=== PATIENT | female | born 2000 | race African-American/Black ===

== ENCOUNTER 2020-06-17 15:50 | Emergency (ER) | payer MEDICAID, OTHER ==
[~2020-06-17] VITALS: Ht 152.4 cm; Wt 57.2 kg
[2020-06-17 16:49] LABS: Urine Bacteria FEW /hpf (None Seen); Urine Blood Negative /uL (Negative); Urine Mucus FEW (None Seen); Urine Specific Gravity 1.019 (1.001-1.035); Urine WBC 7 /hpf (0 - 5)
[2020-06-17 19:23] LABS: Basophils # (auto) 0 10 ^3/uL (0-0.2); Basophils % (auto) 0.3 % (0.0-2.0); Eosinophils # (auto) 0.2 10 ^3/uL (0-0.8); Eosinophils % (auto) 2.4 % (0.0-7.0); Hematocrit 44.1 % (36.0-46.0); Hemoglobin 14.9 g/dL (12.2-16.2); Lymphocytes % (auto) 34.9 % (10.0-50.0); Mean Corpuscular Hemoglobin 30.6 pg (28.0-32.0); Mean Corpuscular Hgb Conc. 33.8 g/dL (32.0-36.0); Mean Corpuscular Volume 90.6 fL (80.0-100.0); Monocytes # (auto) 0.6 10 ^3/uL (0-1.3); Monocytes % (auto) 6.6 % (0.0-12.0); Neutrophils # (auto) 4.7 10 ^3/uL (1.6-8.6); Neutrophils % (auto) 55.8 % (37.0-80.0); Nucleated Red Blood Cells % 0.2 %; Platelet Count (auto) 362 10^3/uL (140-450); Red Blood Cells 4.86 10^6/uL (4.0-5.20); Red Cell Distribution Width 13.4 % (11.8-14.3); White Blood Cell 8.5 10^3/uL (4.4-10.8)
[2020-06-17 19:35] LABS: Albumin 4.2 g/dL (3.4-5.0); Calcium 9.4 mg/dL (8.5-10.1); Potassium 3.4 mmol/L (3.5-5.1)
[2020-06-17 19:37] LABS: Bilirubin, Total 0.4 mg/dL (0.2-1.0); Total Protein 8.2 g/dL (6.4-8.2)
[2020-06-17 22:44] VITALS: BP 124/81
== END 2020-06-17 22:05 | disposition home or self-care (01) ==
LOC: ER 15:50
DX: O26.891 Other specified pregnancy related conditions, first trimester (principal); R10.30 Lower abdominal pain, unspecified; Z3A.01 Less than 8 weeks gestation of pregnancy
CPT/HCPCS: 36415; 76801; 76817; 80053; 81001; 81025; 84702; 85025

== ENCOUNTER 2020-07-01 13:11 | Emergency (ER) | payer MEDICAID ==
[~2020-07-01] VITALS: Ht 152.4 cm; Wt 55.8 kg
[2020-07-01 14:46] LABS: Urine Bacteria FEW /hpf (None Seen); Urine Blood 1+ /uL (Negative); Urine Specific Gravity 1.012 (1.001-1.035); Urine WBC 3 /hpf (0 - 5)
[2020-07-01 16:02] VITALS: BP 115/78
== END 2020-07-01 16:03 | disposition home or self-care (01) ==
LOC: ER 13:11
DX: O03.9 Complete or unspecified spontaneous abortion without complication (principal); Z3A.01 Less than 8 weeks gestation of pregnancy
CPT/HCPCS: 36415; 81001; 84702

== ENCOUNTER 2022-06-05 13:11 | Emergency (ER) | payer MEDICAID ==
[~2022-06-05] VITALS: Ht 152.4 cm; Wt 55.0 kg
[2022-06-05 15:23] VITALS: BP 110/68
[2022-06-05] MEDS ORDERED: IBUP600T27 PO (15:26)
[2022-06-05] MEDS ORDERED: METH500T22 PO (15:26)
== END 2022-06-05 15:30 | disposition home or self-care (01) ==
LOC: ER 13:11
DX: S39.012A Strain of muscle, fascia and tendon of lower back, initial encounter (principal); F17.210 Nicotine dependence, cigarettes, uncomplicated; Z88.0 Allergy status to penicillin; X50.1XXA Overexertion from prolonged static or awkward postures, initial encounter; Y93.89 Activity, other specified; Y92.89 Other specified places as the place of occurrence of the external cause; Y99.8 Other external cause status

== ENCOUNTER 2022-07-13 19:36 | Emergency (ER) | payer MEDICAID ==
[~2022-07-13] VITALS: Ht 152.4 cm; Wt 54.0 kg
[~2022-07-13 19:36] MED LIST: IBUP600T27 PO; METH500T22 PO
[2022-07-13 21:48] LABS: Urine Bacteria NONE SEEN /hpf (None Seen); Urine Blood Negative /uL (Negative); Urine Mucus FEW (None Seen); Urine Specific Gravity 1.019 (1.001-1.035); Urine WBC 5 /hpf (0 - 5)
[2022-07-13 21:54] LABS: Basophils # (auto) 0 10 ^3/uL (0-0.2); Basophils % (auto) 0.6 % (0.0-2.0); Eosinophils # (auto) 0.5 10 ^3/uL (0-0.8); Eosinophils % (auto) 6.7 % (0.0-7.0); Hematocrit 47.2 % (36.0-46.0); Hemoglobin 15.6 g/dL (12.2-16.2); Lymphocytes # (auto) 2.2 10 ^3/uL (0.4-5.4); Lymphocytes % (auto) 32.4 % (10.0-50.0); Mean Corpuscular Hemoglobin 30.6 pg (28.0-32.0); Mean Corpuscular Volume 92.7 fL (80.0-100.0); Monocytes # (auto) 0.6 10 ^3/uL (0-1.3); Monocytes % (auto) 8.2 % (0.0-12.0); Neutrophils # (auto) 3.5 10 ^3/uL (1.6-8.6); Neutrophils % (auto) 52.1 % (37.0-80.0); Nucleated Red Blood Cells % 0.1 %; Red Blood Cells 5.09 10^6/uL (4.0-5.20); Red Cell Distribution Width 13.7 % (11.8-14.3); White Blood Cell 6.8 10^3/uL (4.4-10.8)
[2022-07-13 22:06] LABS: Potassium 3.9 mmol/L (3.5-5.1)
[2022-07-13 22:12] LABS: BUN/Creatinine Ratio 10.8; Bilirubin, Total 0.4 mg/dL (0.2-1.0); Total Protein 7.6 g/dL (6.4-8.2)
[2022-07-14] MEDS ORDERED: CEPH-322 PO (03:55)
[2022-07-14] MEDS ORDERED: HYDROcodone-ACET 5/325MG TAB PO ONE (04:00)
[2022-07-14] MEDS ORDERED: cefTRIAXone W LIDOCAINE 1 GM IM IM ONE (04:00)
[2022-07-14] MEDS ORDERED: ONDANSETRON ODT 4 MG TAB PO ONE (04:00)
[2022-07-14] MEDS ORDERED: cefTRIAXone SOD 1,000 MG VL ONE (05:04)
[2022-07-14 05:05] VITALS: BP 132/72
[2022-07-14] MEDS ORDERED: LIDOCAINE 1%HCL (LOCAL ANESTH) 10 ML MDV ONE (05:13)
== END 2022-07-14 05:24 | disposition home or self-care (01) ==
LOC: ER 19:38
DX: N39.0 Urinary tract infection, site not specified (principal); F17.210 Nicotine dependence, cigarettes, uncomplicated; F12.10 Cannabis abuse, uncomplicated; Z32.02 Encounter for pregnancy test, result negative; Z88.0 Allergy status to penicillin
CPT/HCPCS: 36415; 80053; 81001; 81025; 83690; 85025; 96372; 99283; J0696; J2001; Q0162

== ENCOUNTER 2023-07-07 12:13 | Emergency (ER) | payer SELFPAY ==
[~2023-07-07] VITALS: Ht 152.4 cm; Wt 44.4 kg
[~2023-07-07 12:13] MED LIST changes: +CEPH250C PO; +IBUP-1454 PO; -IBUP600T27 PO; +METH-1181 PO; -METH500T22 PO
[2023-07-07 12:37] VITALS: BP 109/70; PULSE 90; RESP 18; O2SAT 96
== END 2023-07-07 15:28 | disposition home or self-care (01) ==
LOC: ER 12:13
DX: G44.209 Tension-type headache, unspecified, not intractable (principal)
CPT/HCPCS: 70450

== ENCOUNTER 2024-12-06 07:41 | Emergency (ER) | payer MEDICAID ==
[~2024-12-06] VITALS: Ht 152.4 cm; Wt 44.7 kg
[2024-12-06 08:09] VITALS: BP 106/76; PULSE 92; RESP 16; TEMP 98.3; O2SAT 97
--- NOTE | 2024-12-06 08:21 | ED.PDOC ---
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 24 year old with hx of irregular menses presents for menses concern Started menses yesterday Noted large clots, and heavy flow Went through 5 pads yesterday Today she is on 2nd pad Associated with ab cramping LMP 10/30/2024 Chief Complaint: Vaginal Bleed Time Seen by MD: 07:47 Reviewed Notes: Nurses Notes, Medications, Allergies Allergies: Coded Allergies: Penicillins (Verified Allergy, Unknown, 07/01/20) Uncoded Allergies: CILLINS (Allergy, Unknown, 06/17/20) Home Meds Active Scripts Cephalexin (KEFLEX CAPSULE) 250 Mg Cp, 1 CAP PO QID for 5 Days, #20 CAP Prov:IVANA ARCOS DO 07/14/22 Methocarbamol (Methocarbamol) 500 Mg Tab, 500 MG PO QHSP PRN, #20 TAB Prov:GILDA CHOI 06/05/22 Ibuprofen (Ibuprofen) 600 Mg Tab, 600 MG PO TID, #30 TAB Prov:GILDA CHOI 06/05/22 Information Source: Patient Past Medical History PAST MEDICAL HISTORY: Denies Surgical History: Denies all surgeries VALIDATION MANAGER History: No Pertinent VALIDATION MANAGER History Family History Family History: Reviewed,noncontributory to illness Social History Smoker: Cigarettes Alcohol: Occasionally Drugs: Marijuana Lives In: Home All Other Systems: Reviewed and Negative (per hpi) Physical Exam General Appearance: No Apparent Distress, Normal HEENT: Normal ENT Inspection, Pharynx Normal, TMs Normal Neck: Full Range of Motion, Non-Tender, Normal, Normal Inspection Respiratory: Chest Non-Tender, Lungs Clear, No Accessory Muscle Use, No Respiratory Distress, Normal Breath Sounds Cardiovascular: No Murmur, No Gallop, Regular Rate/Rhythm Breast Exam: Deferred Gastrointestinal: No Organomegaly, Non Tender, No Pulsatile Mass, Normal Bowel Sounds, Soft Genitalia: Deferred Pelvic: Deferred (Declined) Rectal: Deferred Extremities: Normal capillary refill, Normal inspection, Normal range of motion, Non-tender, No pedal edema Musculoskeletal : Apperance: Normal Neurologic: Alert, No Motor Deficits, Normal Affect, Normal Mood, No Sensory Deficits Cerebellar Function: Normal Reflexes: Normal Skin: Dry, Normal Color, Warm Lymphatic: No Adenopathy Was a procedure done? Was a procedure done?: No Differential Diagnosis (VALIDATION MANAGER) Vaginal Bleeding: Ectopic , Menstrual Bleeding, UTI, Vaginitis X-Ray, Labs, Meds, VS Vital Signs Date Time Temp Pulse Resp B/P (MAP) Pulse Ox O2 Delivery O2 Flow Rate FiO2 12/06/24 08:09 92 16 97 Room Air 12/06/24 08:09 98.3 92 16 106/76 (86) 97 98.3 12/06/24 07:46 98.3 92 16 106/76 (86) 97 98.3 Lab Test 12/06/24 08:28 12/06/24 08:20 Range/Units White Blood Count 5.5 4.4-10.8 10^3/uL Red Blood Count 4.91 4.0-5.20 10^6/uL Hemoglobin 15.9 12.2-16.2 g/dL Hematocrit 46.3 H 36.0-46.0 % Mean Corpuscular Volume 94.2 80.0-100.0 fL Mean Corpuscular Hemoglobin 32.4 H 28.0-32.0 pg Mean Corpuscular Hemoglobin Concent 34.4 32.0-36.0 g/dL Red Cell Distribution Width 13.4 11.8-14.3 % Platelet Count 288 140-450 10^3/uL Mean Platelet Volume 6.3 L 6.9-10.8 fL Neutrophils (%) (Auto) 60.5 37.0-80.0 % Lymphocytes (%) (Auto) 23.9 10.0-50.0 % Monocytes (%) (Auto) 7.7 0.0-12.0 % Eosinophils (%) (Auto) 7.1 H 0.0-7.0 % Basophils (%) (Auto) 0.8 0.0-2.0 % Neutrophils # (Auto) 3.3 1.6-8.6 10 ^3/uL Lymphocytes # (Auto) 1.3 0.4-5.4 10 ^3/uL Monocytes # (Auto) 0.4 0-1.3 10 ^3/uL Eosinophils # (Auto) 0.4 0-0.8 10 ^3/uL Basophils # (Auto) 0 0-0.2 10 ^3/uL Nucleated Red Blood Cells 0.0 % Sodium Level 140 136-145 mmol/L Potassium Level 4.0 3.5-5.1 mmol/L Chloride Level 113 H 98-107 mmol/L Carbon Dioxide Level 20 20-31 mmol/L Anion Gap 7 5-15 Blood Urea Nitrogen 6 L 9-23 mg/dL Creatinine 0.72 0.550-1.02 mg/dL Glomerular Filtration Rate Calc 119 >90 mL/min BUN/Creatinine Ratio 8.3 L 10.0-20.0 Serum Glucose 83 74-106 mg/dL Calcium Level 9.8 8.7-10.4 mg/dL Urine Color Light-brown Yellow Urine Clarity Turbid H Clear Urine pH 7.5 5.0-9.0 Urine Specific [place] 1.015 1.001-1.035 Urine Protein 1+ H Negative Urine Ketones Negative Negative Urine Blood 3+ H Negative /uL Urine Nitrite Negative Negative Urine Bilirubin Negative Negative Urine Urobilinogen Normal Negative mg/dL Urine Leukocyte Esterase 2+ Negative /uL Urine RBC 3 0 - 4 /hpf Urine Microscopic WBC 18 H 0-5 /HPF Urine Squamous Epithelial Cells Mod <5 /hpf Urine Bacteria None seen None Seen /hpf Urine Glucose Normal Normal mg/dL Urine Test Negative Negative Chlamydia trachomatis (MICHELLE) Pending Neisseria gonorrhoeae (MICHELLE) Pending X-Ray, Labs, Meds, VS Comment Suggested a pelvic exam and pelvic ultrasound however patient declines at this time patient, patient has been follow up with the PCP as outpatient. History and lab findings consistent with UTI Vital signs stable patient stable Patient tolerating p.o. fluids Encouraged parents to increase water intake Practice good personal hygiene. Always wipe from front to back Drink plenty of fluids to help flush bacteria out of the urinary tract Empty bladder completely as soon as you feel the urge Empty bladder after intercourse Prescribed p.o. antibiotics for presentation of symptoms Complete course of antibiotic therapy even if symptoms improve or resolve. There should be no leftover antibiotics as this can lead to antibiotic resistant bacteria and even worse infection. Parents verbalized understanding. Potential side effects discussed with patient including abdominal pain, nausea, diarrhea. Recommended probiotics and return precautions given Persistent diarrhea Dehydration Blood in stool Ill-appearing Patient is stable for discharge at this time. External notes reviewed. Test results and diagnostic imaging interpreted. All diagnostic findings, discharge care, education and instructions provided Follow-up with PCP in 2 to 3 days Patient verbalized understanding and agreed to treatment plan Vital signs stable, afebrile, no acute distress noted Patient ambulatory with strong steady gait Advised to return precautions for any new or worsening symptoms, return to ER immediately for re-evaluation Patient is aware that the purpose of this visit was for an acute medical emergency requiring emergent stabilization. Chronic conditions, including malignancies have not been ruled out. Patient is instructed to follow up with PCP as directed and discharge instructions for continued care and workup. If unable to arrange follow-up, patient is to return to the emergency department for reassessment. Patient (parent or legal guardian if applicable) was given verbal and written discharge instructions and acknowledges understanding. Time of 1ST Reevaluation: 08:19 Reevaluation 1ST: Improved Time of 2ND Reevaluation: 09:55 Reevaluation 2ND: Improved Patient Education/Counseling: Diagnosis, Treatment Family Education/Counseling: Diagnosis, Treatment Departure 1 Departure Time of Disposition: 09:57 Impression: Primary Impression: UTI (urinary tract infection) Qualified Codes: N30.01 - Acute cystitis with hematuria Additional Impression: Dysmenorrhea Disposition: HOME / SELF CARE / HOMELESS Condition: Stable e-Prescriptions Dicyclomine Hcl (BENTYL CAPSULE) 10 Mg Cp 1 CAP PO TIDPRN PRN for 7 Days, #21 CAP 0 Refills Prov: PHIL WOODWARD NP 12/06/24 Ibuprofen Micronized (Ibuprofen) 600 Mg Tab 600 MG PO TID for 10 Days, #30 TAB 0 Refills Prov: PHIL WOODWARD NP 12/06/24 Nitrofurantoin Monohydrate Mac (Macrobid) 100 Mg Cap 100 MG PO BID for 7 Days, #14 CAP 0 Refills Prov: PHIL WOODWARD NP 12/06/24 Critical Care Note Critical Care Time?: No Stability Stability form required: No Heart Score Heart Score: Heart Score Response (Comments) Value History N/A 0 EKG N/A 0 Age N/A 0 Risk Factors N/A 0 Troponin N/A 0 Total 0 PHIL WOODWARD NP Dec 06, 2024 08:20
[2024-12-06 08:29] LABS: Urine Bacteria None Seen /hpf (None Seen)
[2024-12-06 08:50] LABS: Basophils # (auto) 0 10 ^3/uL (0-0.2); Basophils % (auto) 0.8 % (0.0-2.0); Eosinophils # (auto) 0.4 10 ^3/uL (0-0.8); Eosinophils % (auto) 7.1 % (0.0-7.0); Hematocrit 46.3 % (36.0-46.0); Hemoglobin 15.9 g/dL (12.2-16.2); Lymphocytes # (auto) 1.3 10 ^3/uL (0.4-5.4); Lymphocytes % (auto) 23.9 % (10.0-50.0); Mean Corpuscular Hemoglobin 32.4 pg (28.0-32.0); Mean Corpuscular Hgb Conc. 34.4 g/dL (32.0-36.0); Mean Corpuscular Volume 94.2 fL (80.0-100.0); Monocytes # (auto) 0.4 10 ^3/uL (0-1.3); Monocytes % (auto) 7.7 % (0.0-12.0); Neutrophils # (auto) 3.3 10 ^3/uL (1.6-8.6); Neutrophils % (auto) 60.5 % (37.0-80.0); Platelet Count (auto) 288 10^3/uL (140-450); Red Blood Cells 4.91 10^6/uL (4.0-5.20); Red Cell Distribution Width 13.4 % (11.8-14.3); White Blood Cell 5.5 10^3/uL (4.4-10.8)
[2024-12-06 08:53] LABS: Urine Blood 3+ /uL (Negative); Urine Clarity Turbid (Clear); Urine Color Light-Brown (Yellow); Urine Protein, UAD 1+ (Negative); Urine Specific Gravity 1.015 (1.001-1.035); Urine Squamous Epithelial Cell MOD /hpf (<5); Urine Urobilinogen Normal (Negative); Urine WBC 18 /HPF (0-5); Urine pH 7.5 (5.0-9.0)
[2024-12-06 09:08] LABS: Sodium 140 mmol/L (136-145)
[2024-12-06 09:09] LABS: Anion Gap 7 (5-15); Carbon Dioxide 20 mmol/L (20-31)
[2024-12-06 09:10] LABS: Calcium 9.8 mg/dL (8.7-10.4)
[2024-12-06 09:11] LABS: Chloride 113 mmol/L (98-107)
[2024-12-06 09:14] LABS: BUN/Creatinine Ratio 8.3 (10.0-20.0); Glucose 83 mg/dL (74-106)
[2024-12-06 09:15] LABS: Blood Urea Nitrogen 6 mg/dL (9-23)
[2024-12-06] MEDS ORDERED: IBUP1TAB5 PO (10:01)
[2024-12-06] MEDS ORDERED: DICY10CA PO (10:01)
[2024-12-06] MEDS ORDERED: NITR-87 PO (10:01)
[2024-12-07 23:06] LABS: Chlamydia Trachomatis, NAA Negative (Negative); Neisseria gonorrhoeae, NAA Negative (Negative)
== END 2024-12-06 10:05 | disposition home or self-care (01) ==
LOC: ER 07:41
DX: N39.0 Urinary tract infection, site not specified (principal); N94.6 Dysmenorrhea, unspecified; F12.90 Cannabis use, unspecified, uncomplicated; F17.210 Nicotine dependence, cigarettes, uncomplicated; Z88.0 Allergy status to penicillin; Z79.1 Long term (current) use of non-steroidal anti-inflammatories (NSAID)
CPT/HCPCS: 36415; 80048; 81001; 81025; 85025

== ENCOUNTER 2025-07-28 12:16 | Emergency (ER) | payer MEDICAID ==
[~2025-07-28] VITALS: Ht 154.9 cm; Wt 46.3 kg
[~2025-07-28 12:16] MED LIST changes: +DICY10CA PO; +IBUP1TAB5 PO; +NITR-87 PO
--- NOTE | 2025-07-28 14:31 | DVH ---
US OB ULTRASOUND COMP LESS 14WKS Indication: PELVIC PRESSURE Comparison: None TECHNIQUE: Multiple real-time grayscale sonographic images of the pelvis with duplex Doppler color flow, spectral and M-mode analysis. Findings: Transabdominal and transvaginal imaging was performed. The uterus measures 6.9 cm. Possible gestational sac is seen within the uterus measuring 0.4 cm. No 4 or yolk sac is visualized. 2.1 cm complex right ovarian cyst. Unremarkable left ovary. Small volume free pelvic fluid. IMPRESSION: Questionable early intrauterine gestational sac versus pseudo-gestational sac. No pole or yolk sac is visualized. Recommend serial beta-hCG and sonographic follow-up. Complex right ovarian cyst measuring 2.1 cm. This could be hemorrhagic cyst.
--- NOTE | 2025-07-28 14:52 | ED.PDOC ---
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 Patient reports pulling a bag down at work when she got hit in the abdomen. She has had pain since. Patient reports she is , LMP on 06/04/25. Patient has no further complaints at this time. Patient denies any vaginal bleeding, fever, chills, or N/V/D. Chief Complaint: Time Seen by MD: 14:50 Reviewed Notes: Medications, Allergies Allergies: Coded Allergies: Penicillins (Verified Allergy, Unknown, 07/01/20) Uncoded Allergies: CILLINS (Allergy, Unknown, 06/17/20) Home Meds Active Scripts Dicyclomine Hcl (BENTYL CAPSULE) 10 Mg Cp, 1 CAP PO TIDPRN PRN for 7 Days, #21 CAP 0 Refills Prov:PHIL WOODWARD ORTHOTICS PROSTHETICS ASSISTANT 12/06/24 Ibuprofen Micronized (Ibuprofen) 600 Mg Tab, 600 MG PO TID for 10 Days, #30 TAB 0 Refills Prov:PHIL WOODWARD ORTHOTICS PROSTHETICS ASSISTANT 12/06/24 Nitrofurantoin Monohydrate Mac (Macrobid) 100 Mg Cap, 100 MG PO BID for 7 Days, #14 CAP 0 Refills Prov:PHIL WOODWARD ORTHOTICS PROSTHETICS ASSISTANT 12/06/24 Cephalexin (KEFLEX CAPSULE) 250 Mg Cp, 1 CAP PO QID for 5 Days, #20 CAP Prov:IVANA ARCOS DO 07/14/22 Methocarbamol (Methocarbamol) 500 Mg Tab, 500 MG PO QHSP PRN, #20 TAB Prov:GILDA CHOI 06/05/22 Ibuprofen (Ibuprofen) 600 Mg Tab, 600 MG PO TID, #30 TAB Prov:GILDA CHOI 06/05/22 Information Source: Patient Mode of Arrival: Ambulatory Timing: Hours Severity: Moderate Onset Of Mass/Bleeding: Following Trauma Sexual Activity: Associated Signs and Symptoms: Abdominal Pain Past Medical History PAST MEDICAL HISTORY: Denies Surgical History: Denies all surgeries PLUG SORTER History: No Pertinent PLUG SORTER History Family History Family History: Reviewed,noncontributory to illness Social History Smoker: Cigarettes Alcohol: Occasionally Drugs: Marijuana Lives In: Home Constitutional: denies: chills, diaphoresis, fatigue, fever, malaise, sweats, weakness, others EENTM: denies: blurred vision, double vision, ear bleeding, ear discharge, ear drainage, ear pain, ear ringing, eye pain, eye redness, hearing loss, mouth pain, mouth swelling, nasal discharge, nose bleeding, nose congestion, nose pain, photophobia, tearing, throat pain, throat swelling, voice changes, others Respiratory: denies: cough, hemoptysis, orthopnea, SOB at rest, shortness of breath, SOB with excertion, stridor, wheezing, others Cardiovascular: denies: chest pain, dizzy spells, diaphoresis, Dyspnea on exertion, edema, irregular heart beat, left arm pain, lightheadedness, palpitations, PND, syncope, others Gastrointestinal: denies: abdomen distended, abdominal pain, blood streaked bowels, constipated, diarrhea, dysphagia, difficulty swallowing, hematemesis, melena, nausea, poor appetite, poor fluid intake, rectal bleeding, rectal pain, vomiting, others Genitourinary: reports: , others (pelvoic pressure ); denies: abnormal vagina bleeding, burning, dyspareunia, dysuria, flank pain, frequency, hematuria, incontinence, pain, vagina discharge, urgency Neurological: denies: dizziness, fainting, headache, left sided numbness, left sided weakness, numbness, paresthesia, pre-existing deficit, right sided numbness, right sided weakness, seizure, speech problems, tingling, tremors, weakness, others Musculoskeletal: denies: back pain, gout, joint pain, joint swelling, muscle pain, muscle stiffness, neck pain, others Integumetry: denies: bruises, change in color, change in hair/nails, dryness, laceration, lesions, lumps, rash, wounds, others Allergic/Immunocompromised: denies: Difficulty Healing, Frequent Infections, Hives, Itching, others Hematologic/Lymphatic: denies: anemia, blood clots, easy bleeding, easy bruising, swollen glands, others Endocrine: denies: excessive hunger, excessive sweating, excessive thirst, excessive urination, flushing, intolerance to cold, intolerance to heat, unexplained weight gain, unexplained weight loss, others Psychiatric: denies: anxiety, bipolar disorder, depression, hopeless, panic disorder, schizophrenia, sleepless, suicidal, others All Other Systems: Reviewed and Negative Physical Exam General Appearance: Moderate Distress HEENT: Normal ENT Inspection, Pharynx Normal, TMs Normal Neck: Full Range of Motion, Non-Tender, Normal, Normal Inspection Respiratory: Chest Non-Tender, Lungs Clear, No Accessory Muscle Use, No Respiratory Distress, Normal Breath Sounds Cardiovascular: No Edema, No JVD, No Murmur, No Gallop, Normal Peripheral Pulses, Regular Rate/Rhythm Breast Exam: Deferred Gastrointestinal: No Organomegaly, Non Tender, No Pulsatile Mass, Normal Bowel Sounds, Soft Genitalia: Deferred Pelvic: Deferred Rectal: Deferred Extremities: No calf tenderness, Normal capillary refill, Normal inspection, Normal range of motion, Non-tender, No pedal edema Musculoskeletal : Apperance: Normal Neurologic: Alert, master barber II-XII nml as Tested, No Motor Deficits, Normal Affect, Normal Mood, No Sensory Deficits Cerebellar Function: Normal Reflexes: Normal Skin: Dry, Normal Color, Warm Peripheral Pulses: 3+ Radial (R), 3+ Radial (L) Lymphatic: No Adenopathy Was a procedure done? Was a procedure done?: No Differential Diagnosis (PLUG SORTER) Vaginal Bleeding: - Complete, - Incomplete, - Inevitable, - Missed, - Threatened, UTI, Vaginitis Vaginal Discharge: X-Ray, Labs, Meds, VS Vital Signs Date Time Temp Pulse Resp B/P (MAP) Pulse Ox O2 Delivery O2 Flow Rate FiO2 07/28/25 12:17 98.6 109 18 116/75 98 98.6 Lab Test 07/28/25 12:31 Range/Units Beta HCG, Quantitative 4642.0 H 1.5-4.2 mIU/mL [place] [id number] Ph: [phone] DIAGNOSTIC IMAGING Diagnostic Imaging Report : [id number] Signed PATIENT: SARAH LAM ACCT: [id number] UNIT: [id number] : 2000 LOC: ER ROOM / BED: / AGE / SEX: 25 / F ADM STATUS: REG ER SERVICE 1220 ORDERING PHYSICIAN: COSME GONZALEZ MD PROCEDURE(s): OB4US - OB ULTRASOUND COMP LESS 14WKS REASON: PELVIC PRESSURE ORDER NUMBER(s): [id number], ACCESSION NUMBER(s): [id number] US OB ULTRASOUND COMP LESS 14WKS Indication: PELVIC PRESSURE Comparison: None TECHNIQUE: Multiple real-time grayscale sonographic images of the pelvis with duplex Doppler color flow, spectral and M-mode analysis. Findings: Transabdominal and transvaginal imaging was performed. The uterus measures 6.9 cm. Possible gestational sac is seen within the uterus measuring 0.4 cm. No 4 or yolk sac is visualized. 2.1 cm complex right ovarian cyst. Unremarkable left ovary. Small volume free pelvic fluid. IMPRESSION: Questionable early intrauterine gestational sac versus pseudo-gestational sac. No pole or yolk sac is visualized. Recommend serial beta-hCG and sonographic follow-up. Complex right ovarian cyst measuring 2.1 cm. This could be hemorrhagic cyst. Patient alert. No sign of distress. Answering questions. Vitals stable. Ambulating. Ultrasound does not reveal intrauterine . Questionable. Explained to the patient early. Follow up with serial blood work ultrasound. Was told to follow up with her primary care physician. Was told to come back if there there is any problem. Time of 1ST Reevaluation: 15:22 Reevaluation 1ST: Unchanged Patient Education/Counseling: Diagnosis, Treatment Family Education/Counseling: No Family Present Departure 1 Departure Time of Disposition: 16:11 Impression: Primary Impression: Early stage of Disposition: 01 HOME / SELF CARE / HOMELESS Condition: Good Discharged With: Self Critical Care Note Critical Care Time?: No Stability Stability form required: No Heart Score Heart Score: Heart Score Response (Comments) Value History N/A 0 EKG N/A 0 Age N/A 0 Risk Factors N/A 0 Troponin N/A 0 Total 0 I personally scribed for COSME GONZALEZ MD ([email or web address]) on 07/28/25 at 14:52. Electronically submitted by Ruth Ann Stewart ([email or web address]). I personally scribed for COSME GONZALEZ MD ([email or web address]) on 07/28/25 at 14:52. Electronically submitted by Ruth Ann Stewart ([email or web address]). I personally scribed for COSME GONZALEZ MD ([email or web address]) on 07/28/25 at 15:29. Electronically submitted by Sunny Weiner [email or web address]). COSME GONZALEZ MD Jul 28, 2025 14:52
[2025-07-28 16:31] VITALS: BP 122/67; PULSE 94; RESP 20; TEMP 98; O2SAT 98
== END 2025-07-28 16:34 | disposition home or self-care (01) ==
LOC: ER 12:19
DX: O26.891 Other specified pregnancy related conditions, first trimester (principal); F17.210 Nicotine dependence, cigarettes, uncomplicated; F12.90 Cannabis use, unspecified, uncomplicated; Z3A.01 Less than 8 weeks gestation of pregnancy; Z88.0 Allergy status to penicillin; Z79.1 Long term (current) use of non-steroidal anti-inflammatories (NSAID)
CPT/HCPCS: 36415; 76801; 84702

== ENCOUNTER 2025-08-16 13:37 | Emergency (ER) | payer MEDICAID ==
[~2025-08-16] VITALS: Ht 152.4 cm; Wt 98.2 kg
[2025-08-16 14:59] VITALS: BP 120/84; PULSE 94; RESP 16; TEMP 98.1; O2SAT 98
--- NOTE | 2025-08-16 15:07 | ED.PDOC ---
GI ASSESSMENT HPI Comments A 25 YEAR OLD FEMALE PRESENTS TO THE ED WITH COMPLAINT OF NAUSEA AND VOMITING DURING . PATIENT STATES SHE IS CURRENTLY 6 WEEKS AND HAS BEEN EXPERIENCING NAUSEA AND VOMITING DURING HER . PATIENT REPORTS SHE WAS PRESCRIBED PROMETHAZINE BY HER FACILITIES OPERATIONS TECHNICIAN FOR HER NAUSEA AND VOMITING, BUT NOTES THERE HAS BEEN NO IMPROVEMENT IN HER SYMPTOMS. PATIENT STATES SHE HAS BEEN UNABLE TO HOLD ANYTHING DOWN A RESULT OF HER VOMITING. PATIENT DENIES DYSURIA, HEMATURIA, VAGINAL BLEEDING/SPOTTING, FEVER, CHILLS, SHORTNESS OF BREATH, CHEST PAIN, ABDOMINAL PAIN, HEADACHE, OR OTHER COMPLAINTS. NO OTHER SYMPTOMS OR MODIFYING FACTORS AT THIS TIME. PATIENT IS ALERT, ORIENTED X 4, AND HAS STEADY GAIT. Chief Complaint: Nausea/Vomiting Time Seen by MD: 13:47 Primary Care Provider: [facility] Reviewed Notes: Nurses Notes, Medications, Allergies Allergies: Coded Allergies: Penicillins (Verified Allergy, Unknown, 07/01/20) Uncoded Allergies: CILLINS (Allergy, Unknown, 06/17/20) Home Meds Active Scripts Ondansetron Odt 4MG Tab (ZOFRAN PO) 4 Mg Tb, 4 MG PO BID, #20 TAB ODT TAB-DISSOLVE IN MOUTH, THEN SWALLOW Prov:GILDA CHOI 08/16/25 Dicyclomine Hcl (BENTYL CAPSULE) 10 Mg Cp, 1 CAP PO TIDPRN PRN for 7 Days, #21 CAP 0 Refills Prov:PHIL WOODWARD [employer]AVA [employer] TECHNICAL LEAD 12/06/24 Ibuprofen Micronized (Ibuprofen) 600 Mg Tab, 600 MG PO TID for 10 Days, #30 TAB 0 Refills Prov:PHIL WOODWARD NP 12/06/24 Nitrofurantoin Monohydrate Mac (Macrobid) 100 Mg Cap, 100 MG PO BID for 7 Days, #14 CAP 0 Refills Prov:PHIL WOODWARD JAVA [employer]2EE TECHNICAL LEAD 12/06/24 Cephalexin (KEFLEX CAPSULE) 250 Mg Cp, 1 CAP PO QID for 5 Days, #20 CAP Prov:IVANA ARCOS DO 07/14/22 Methocarbamol (Methocarbamol) 500 Mg Tab, 500 MG PO QHSP PRN, #20 TAB Prov:GILDA CHOI 06/05/22 Ibuprofen (Ibuprofen) 600 Mg Tab, 600 MG PO TID, #30 TAB Prov:GILDA CHOI 06/05/22 Information Source: Patient Mode of Arrival: Ambulatory Timing: Days Duration: Since onset, Days Prehospital treatment: None Quality: None Vomitus: Food Particles Stool: Normal Severity: Moderate Recent: None Recent Hx of: Current Pain Location: None Modifying Factors: Nothing Associated sign and symptoms: Nausea, Vomiting Past Medical History PAST MEDICAL HISTORY: Denies Surgical History: Denies all surgeries DRAPERY SUPERVISOR History: No Pertinent DRAPERY SUPERVISOR History Family History Family History: Reviewed,noncontributory to illness Social History Smoker: Cigarettes Alcohol: Occasionally Drugs: Marijuana Lives In: Home Constitutional: denies: chills, diaphoresis, fatigue, fever, malaise, sweats, weakness, others EENTM: denies: blurred vision, double vision, ear bleeding, ear discharge, ear drainage, ear pain, ear ringing, eye pain, eye redness, hearing loss, mouth pain, mouth swelling, nasal discharge, nose bleeding, nose congestion, nose pain, photophobia, tearing, throat pain, throat swelling, voice changes, others Respiratory: denies: cough, hemoptysis, orthopnea, SOB at rest, shortness of breath, SOB with excertion, stridor, wheezing, others Cardiovascular: denies: chest pain, dizzy spells, diaphoresis, Dyspnea on exertion, edema, irregular heart beat, left arm pain, lightheadedness, palpitations, PND, syncope, others Gastrointestinal: reports: nausea, vomiting; denies: abdomen distended, abdominal pain, blood streaked bowels, constipated, diarrhea, dysphagia, difficulty swallowing, hematemesis, melena, poor appetite, poor fluid intake, rectal bleeding, rectal pain, others Genitourinary: reports: ; denies: abnormal vagina bleeding, burning, dyspareunia, dysuria, flank pain, frequency, hematuria, incontinence, pain, vagina discharge, urgency, others Neurological: denies: dizziness, fainting, headache, left sided numbness, left sided weakness, numbness, paresthesia, pre-existing deficit, right sided numbness, right sided weakness, seizure, speech problems, tingling, tremors, weakness, others Musculoskeletal: denies: back pain, gout, joint pain, joint swelling, muscle pain, muscle stiffness, neck pain, others Integumetry: denies: bruises, change in color, change in hair/nails, dryness, laceration, lesions, lumps, rash, wounds, others Allergic/Immunocompromised: denies: Difficulty Healing, Frequent Infections, Hives, Itching, others Hematologic/Lymphatic: denies: anemia, blood clots, easy bleeding, easy bruising, swollen glands, others Endocrine: denies: excessive hunger, excessive sweating, excessive thirst, excessive urination, flushing, intolerance to cold, intolerance to heat, unexplained weight gain, unexplained weight loss, others Psychiatric: denies: anxiety, bipolar disorder, depression, hopeless, panic disorder, schizophrenia, sleepless, suicidal, others All Other Systems: Reviewed and Negative Physical Exam General Appearance: No Apparent Distress, Normal HEENT: Normal ENT Inspection, PERRL/EOMI, Pharynx Normal, TMs Normal Neck: Full Range of Motion, Non-Tender, Normal, Normal Inspection Respiratory: Chest Non-Tender, Lungs Clear, No Accessory Muscle Use, No Respiratory Distress, Normal Breath Sounds Cardiovascular: No Edema, No JVD, No Murmur, No Gallop, Normal Peripheral Pulses, Regular Rate/Rhythm Breast Exam: Deferred Gastrointestinal: No Organomegaly, Non Tender, No Pulsatile Mass, Normal Bowel Sounds, Soft Genitalia: Deferred Pelvic: Deferred Rectal: Deferred Extremities: No calf tenderness, Normal capillary refill, Normal inspection, Normal range of motion, Non-tender, No pedal edema Musculoskeletal : Apperance: Normal Neurologic: Alert, 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 Was a procedure done?: No GI differential Dx Differential Diagnosis: UTI, Dehydration, Electrolyte Imbalance, , Viral Other Differential Diagnosis HYPEREMESIS GRAVIDARUM X-Ray, Labs, Meds, VS Vital Signs Date Time Temp Pulse Resp B/P (MAP) Pulse Ox O2 Delivery O2 Flow Rate FiO2 08/16/25 14:59 98.1 94 16 120/84 (96) 98 98.1 08/16/25 14:59 94 16 98 Room Air 08/16/25 13:39 97.1 94 16 120/84 98 97.1 Lab Test 08/16/25 15:15 08/16/25 15:03 Range/Units Urine Color Yellow Yellow Urine Clarity Turbid H Clear Urine pH 5.5 5.0-9.0 Urine Specific Plummer 1.021 1.001-1.035 Urine Protein Trace H Negative Urine Ketones 2+ H Negative Urine Blood Negative Negative /uL Urine Nitrite Negative Negative Urine Bilirubin Negative Negative Urine Urobilinogen Normal Negative mg/dL Urine Leukocyte Esterase 3+ Negative /uL Urine RBC 3 0 - 4 /hpf Urine Microscopic WBC 11 H 0-5 /HPF Urine Squamous Epithelial Cells Few <5 /hpf Urine Amorphous Crystals Few None Seen /hpf Urine Bacteria Few H None Seen /hpf Urine Hyaline Casts Few 0 - 2 /lpf Urine Mucus Few None Seen Urine Glucose Normal Normal mg/dL White Blood Count 8.6 4.4-10.8 10^3/uL Red Blood Count 4.82 4.0-5.20 10^6/uL Hemoglobin 15.2 12.2-16.2 g/dL Hematocrit 44.1 36.0-46.0 % Mean Corpuscular Volume 91.4 80.0-100.0 fL Mean Corpuscular Hemoglobin 31.6 28.0-32.0 pg Mean Corpuscular Hemoglobin Concent 34.5 32.0-36.0 g/dL Red Cell Distribution Width 12.9 11.8-14.3 % Platelet Count 290 140-450 10^3/uL Mean Platelet Volume 6.6 L 6.9-10.8 fL Neutrophils (%) (Auto) 67.8 37.0-80.0 % Lymphocytes (%) (Auto) 24.8 10.0-50.0 % Monocytes (%) (Auto) 6.6 0.0-12.0 % Eosinophils (%) (Auto) 0.6 0.0-7.0 % Basophils (%) (Auto) 0.2 0.0-2.0 % Neutrophils # (Auto) 5.8 1.6-8.6 10 ^3/uL Lymphocytes # (Auto) 2.1 0.4-5.4 10 ^3/uL Monocytes # (Auto) 0.6 0-1.3 10 ^3/uL Eosinophils # (Auto) 0 0-0.8 10 ^3/uL Basophils # (Auto) 0 0-0.2 10 ^3/uL Nucleated Red Blood Cells 0.0 % Sodium Level 138 136-145 mmol/L Potassium Level 3.4 L 3.5-5.1 mmol/L Chloride Level 105 98-107 mmol/L Carbon Dioxide Level 21 20-31 mmol/L Anion Gap 12 5-15 Blood Urea Nitrogen 6 L 9-23 mg/dL Creatinine 0.55 0.550-1.02 mg/dL Glomerular Filtration Rate Calc 130 >90 mL/min BUN/Creatinine Ratio 10.9 10.0-20.0 Serum Glucose 79 74-106 mg/dL Calcium Level 9.7 8.7-10.4 mg/dL Beta HCG, Quantitative Pending Current Medications Medications (Trade) Dose Ordered Sig/Foreign Route Start Time Stop Time Status Last Admin Sodium Chloride 1,000 ml @ 1,000 mls/hr Q1H ONCE IV 08/16/25 15:00 08/16/25 15:59 DC 08/16/25 15:18 X-Ray, Labs, Meds, VS Comment EXTERNAL MEDICAL RECORDS REVIEWED: [NONE] INDEPENDENT HISTORIANS: [NONE] SOCIAL DETERMINANTS OF HEALTH: [NONE] LABS ORDERED: CBC, BMP, UA, BETA HCG QUANT REVIEWED AND INTERPRETED RESULTS: IMAGING ORDERED: NONE TREATMENTS ORDERED: NS 1L IV, ZOFRAN 4 MG IV PROCEDURES PERFORMED: NONE CRITICAL CARE TIME: NONE I HAVE DISCUSSED THE PATIENT WITH THE ATTENDING PHYSICIAN DR. ORDAZ AND HE AGREES WITH THE PATIENT'S PLAN OF CARE AND DISPOSITION. BASED ON HISTORY OF PRESENT ILLNESS, AND PHYSICAL EXAM, PATIENT WILL BE DISCHARGED HOME. DISCUSSED PLAN FOR DISCHARGE HOME WITH RX [ZOFRAN 4MG ODT ]. MEDICATION WARNINGS GIVEN. SHARED DECISION MAKING: PATIENT INSTRUCTED TO FOLLOW UP WITH PRIMARY CARE PROVIDER IN 1-2 DAYS FOR RE-EVALUATION OF SYMPTOMS. PATIENT VERBALIZES UNDERSTANDING TO RETURN TO ED FOR NEW OR WORSENING SYMPTOMS OR IF FOLLOW UP WITH PCP CANNOT BE OBTAINED. PATIENT FEELS COMFORTABLE GOING HOME AT THIS TIME. ALL QUESTIONS ADDRESSED AT TIME OF DISCHARGE. Time of 1ST Reevaluation: 16:25 Reevaluation 1ST: Improved Patient Education/Counseling: Diagnosis, Treatment, Need For Follow Up Family Education/Counseling: Diagnosis, Treatment, Need For Follow Up Medical Screening: No EMC Exist At This Time SEPSIS Sepsis Screen Date sepsis recognized/suspect: Aug 16, 2025 Time Sepsis recognized/suspect: 1341 Recent Procedure: No On Antibiotic Therapy: No Respiratory Rate >20: No Heart Rate >90: No Temp<36 C (96.8 F) or >38.3 C: No SBP <90 or MAP <65 mmHG: No New Acute Mental Status Change: No Is the patient on CPAP, BIPAP,: No Physician Orders Beta Hcg, Quantitative (08/16/25 14:53) Heplock Iv (08/16/25 ) Vital Signs Date Time Temp Pulse Resp B/P (MAP) Pulse Ox O2 Delivery O2 Flow Rate FiO2 08/16/25 14:59 98.1 94 16 120/84 (96) 98 98.1 08/16/25 14:59 94 16 98 Room Air 08/16/25 13:39 97.1 94 16 120/84 98 97.1 Laboratory Tests Test 08/16/25 15:03 White Blood Count 8.6 10^3/uL (4.4-10.8) Medications Medications Dose Ordered Sig/Foreign Route Start Time Stop Time Status Last Admin Dose Admin Sodium Chloride 1,000 ml @ 1,000 mls/hr Q1H ONCE IV 08/16/25 15:00 08/16/25 15:59 DC 08/16/25 15:18 Departure 1 Departure Time of Disposition: 16:25 Impression: Primary Impression: Hyperemesis gravidarum Disposition: HOME / SELF CARE / HOMELESS Condition: Stable Additional Instructions: FOLLOW-UP WITH PCP AND FACILITIES OPERATIONS TECHNICIAN IN 1 TO 2 DAYS. TAKE MEDICATIONS PRESCRIBED. RETURN TO ED FOR ANY NEW OR WORSENING SYMPTOMS. e-Prescriptions Ondansetron Odt 4MG Tab (ZOFRAN PO) 4 Mg Tb 4 MG PO BID, #20 TAB ODT TAB-DISSOLVE IN MOUTH, THEN SWALLOW Prov: GILDA CHOI 08/16/25 Discharged With: Self Critical Care Note Critical Care Time?: No Stability Stability form required: No I personally scribed for GILDA CHOI ([email or web address]) on 08/16/25 at 15:07. Electronically submitted by Myke Cook ([email or web address]). GILDA CHOI Aug 16, 2025 15:07
[2025-08-16] MEDS: SODIUM CHLORIDE 0.9% 1,000 ML IV ONE (15:18)
[2025-08-16] MEDS: ONDANSETRON HCL 4 MG/2 ML VIAL IV ONE (15:20)
[2025-08-16 15:43] LABS: Hematocrit 44.1 % (36.0-46.0); Hemoglobin 15.2 g/dL (12.2-16.2); Mean Corpuscular Hemoglobin 31.6 pg (28.0-32.0); Mean Corpuscular Volume 91.4 fL (80.0-100.0); Nucleated Red Blood Cells % 0.0 %
[2025-08-16 15:50] LABS: Chloride 105 mmol/L (98-107); Sodium 138 mmol/L (136-145)
[2025-08-16 15:51] LABS: Anion Gap 12 (5-15); Carbon Dioxide 21 mmol/L (20-31)
[2025-08-16 15:51] LABS: Urine Amorphous Crystal FEW /hpf (None Seen); Urine Protein, UAD TRACE (Negative)
[2025-08-16 15:52] LABS: Calcium 9.7 mg/dL (8.7-10.4)
[2025-08-16 15:55] LABS: Potassium 3.4 mmol/L (3.5-5.1)
[2025-08-16 15:56] LABS: Glucose 79 mg/dL (74-106)
[2025-08-16 15:57] LABS: BUN/Creatinine Ratio 10.9 (10.0-20.0)
[2025-08-16 16:01] LABS: Blood Urea Nitrogen 6 mg/dL (9-23)
[2025-08-16] MEDS ORDERED: ZOFR4T PO (16:16)
== END 2025-08-16 16:22 | disposition home or self-care (01) ==
LOC: ER 13:37
DX: O21.0 Mild hyperemesis gravidarum (principal); O20.0 Threatened abortion; F17.210 Nicotine dependence, cigarettes, uncomplicated; Z3A.01 Less than 8 weeks gestation of pregnancy; Z88.0 Allergy status to penicillin
CPT/HCPCS: 36415; 80048; 81001; 84702; 85025; 96360; 99283; J2405; J7030